=== PATIENT | female | born 1945 | race Caucasian/White ===

== ENCOUNTER 2016-04-28 06:25 | Day surgery (SDC) | payer MEDICARE ==
[~2016-04-28 06:25] MED LIST: KETOROLAC TROMETHAMINE 0.45% 4 DROP/0.4 ML DROPERETTE OD PRN
[2016-04-28] MEDS: CYCLOPENTOLATE 0.2%/PHENYLEPHRINE 1% OPH SOLN 2 ML OD PRN ×3 (06:46→07:06)
[2016-04-28] MEDS: TROPICAMIDE 1% OPH SOLN 3 ML OD PRN ×3 (06:46→07:06)
[2016-04-28] MEDS: BESIFLOXACIN HCL 0.6% OPH SUSP 5 ML BOTTLE OD PRN ×4 (06:46→08:05)
[2016-04-28] MEDS: TETRACAINE HCL 0.5% OPH SOLN 2 ML OD PRN ×3 (06:47→07:34)
[2016-04-28] MEDS ORDERED: MIDAZOLAM 2 MG/2 ML INJ ONE (07:03)
[2016-04-28] MEDS ORDERED: EPINEPHRINE INJ/PF 1 MG/1 ML AMPULE ONE (07:12)
[2016-04-28] MEDS ORDERED: LIDOCAINE 1% INJ-PF (10 MG/ML) 30 ML SDV ONE (07:13)
[2016-04-28] MEDS ORDERED: CHONDR SU A NA/HYALUR INTRAOC KIT (SURGICARE) ONE (07:13)
--- NOTE | 2016-04-28 17:28 | DISCHARGE SUMMARY E ---
Discharge Summary NAME: SHIRLEY HAUSER : 1945 AGE: 70Y ADMITTED: 04/28/2016 DISCHARGED: This is a 70-year-old female who underwent cataract extraction of the right eye. DIAGNOSIS: Cataract extraction with insertion of a toric IOL at 70 degrees. The patient underwent surgery because she was having trouble reading small print. DISCHARGE INSTRUCTIONS: She is to be on a regular diet. No bending at her waist, no heavy lifting. She is to use Besivance, Ilevro, and Durezol at 3:00 p.m. and 8:00 p.m., and sleep with a rigid shield. I will see her for her one day postoperative tomorrow. DICTATING PHYSICIAN: ROBERTO IBARRA M.D. [id number] PHY#: [id number] ID: [id number] JOB#: [id number] ACCT: [id number] cc:ROBERTO IBARRA M.D. >
--- NOTE | 2016-04-28 18:18 | [facility] OPERATIVE REPORT E ---
[facility] Operative Report NAME: SHIRLEY HAUSER AGE: 70Y DATE OF SURGERY: 04/28/2016 ROOM: PREOPERATIVE DIAGNOSIS: CATARACT, RIGHT EYE. POSTOPERATIVE DIAGNOSIS: CATARACT, RIGHT EYE. OPERATION: Cataract extraction with toric IOL. SURGEON: ROBERTO IBARRA M.D. ANESTHESIA: Topical. PROCEDURE: After obtaining appropriate consent, the patient's right eye was prepped and draped in sterile fashion as well as the surgeon in a sterile manner and cataract surgery was started. First a paracentesis blade was used to make a small side-port incision. Viscoelastic was used to inflate the anterior chamber. Next a 2.4 mm incision was made with the paracentesis blade. A continuous capsulorrhexis incision was made using a cystotome and Utrata forceps. Following this hydrodissection was carried out to make the lens fully loose and mobile and it was rotated 90 degrees. Following this, a fbimqw-bkr-bafigqe technique was used to phacoemulsify the lens with a CDE of 12.51. The remaining cortex was removed with irrigation/aspiration. Provisc was instilled into the capsular bag to inflate the bag. A 23.5 SN6AT3 lens, rotated to 70 degrees diopter lens was placed. The remaining viscoelastic material was removed with irrigation/aspiration. Following this, a 10-0 nylon suture was used to close the incision and it was found to be watertight. Vigamox was instilled in the eye and a protective shield was placed over the eye. The patient returned to the postoperative recovery in stable condition. DICTATING PHYSICIAN: ROBERTO IBARRA M.D. [id number] PHY#: [id number] ID: [id number] JOB#: [id number] ACCT: [id number] cc:ROBERTO IBARRA M.D. >
== END 2016-04-28 08:46 | disposition home or self-care (01) ==
LOC: SC 06:25
PROVIDERS: ATTEND Internal Medicine
PROC: 08RJ3JZ Replacement of Right Lens with Synthetic Substitute, Percutaneous Approach (ICD-10-PCS; principal; 2016-04-28 07:30)
DX: H25.13 Age-related nuclear cataract, bilateral (principal); E03.9 Hypothyroidism, unspecified; Z79.899 Other long term (current) drug therapy
CPT/HCPCS: 66984; V2787; J2250; J3490 ×2; A9270; J0171; 142

== ENCOUNTER 2016-05-19 10:32 | Day surgery (SDC) | payer MEDICARE ==
[~2016-05-19 10:32] MED LIST changes: -KETOROLAC TROMETHAMINE 0.45% 4 DROP/0.4 ML DROPERETTE OD PRN; +KETOROLAC TROMETHAMINE 0.45% 4 DROP/0.4 ML DROPERETTE OS PRN
[2016-05-19] MEDS: CYCLOPENTOLATE 0.2%/PHENYLEPHRINE 1% OPH SOLN 2 ML OS PRN ×3 (11:18→11:57)
[2016-05-19] MEDS: TROPICAMIDE 1% OPH SOLN 3 ML OS PRN ×3 (11:18→11:57)
[2016-05-19] MEDS: TETRACAINE HCL 0.5% OPH SOLN 2 ML OS PRN ×4 (11:18→12:00)
[2016-05-19] MEDS: BESIFLOXACIN HCL 0.6% OPH SUSP 5 ML BOTTLE OS PRN ×4 (11:18→12:36)
[2016-05-19] MEDS ORDERED: MIDAZOLAM 2 MG/2 ML INJ ONE (11:33)
[2016-05-19] MEDS: LIDOCAINE 1% INJ-PF (10 MG/ML) 30 ML SDV ONE ×2 (12:14)
[2016-05-19] MEDS: EPINEPHRINE INJ/PF 1 MG/1 ML AMPULE ONE ×2 (12:14)
[2016-05-19] MEDS: CHONDR SU A NA/HYALUR INTRAOC KIT (SURGICARE) ONE ×2 (12:14)
--- NOTE | 2016-05-19 20:18 | [facility] OPERATIVE REPORT E ---
[facility] Operative Report NAME: SHIRLEY HAUSER AGE: 70Y DATE OF SURGERY: 05/19/2016 ROOM: PREOPERATIVE DIAGNOSIS: CATARACT, LEFT EYE. POSTOPERATIVE DIAGNOSIS: CATARACT, LEFT EYE. OPERATION: Cataract extraction with Toric intraocular lens implant of the left eye. SURGEON: ROBERTO IBARRA M.D. ANESTHESIA: Topical. PROCEDURE: After obtaining appropriate consent, the patient's left eye was prepped and draped in sterile fashion as well as the surgeon in a sterile manner and cataract surgery was started. First a paracentesis blade was used to make a small side-port incision. Viscoelastic was used to inflate the anterior chamber. Next a 2.4 mm incision was made with the paracentesis blade. A continuous capsulorrhexis incision was made using a cystotome and Utrata forceps. Following this hydrodissection was carried out to make the lens fully loose and mobile and it was rotated 90 degrees. Following this, a qkwquf-jjx-mxbatnr technique was used to phacoemulsify the lens with a CDE of 15.90. The remaining cortex was removed with irrigation/aspiration. Provisc was instilled into the capsular bag to inflate the bag. A SN6AT3, 22.5 diopter lens rotated to 107 degrees was placed. The remaining viscoelastic material was removed with irrigation/aspiration. Following this, a 10-0 nylon suture was used to close the incision and it was found to be watertight. Vigamox was instilled in the eye and a protective shield was placed over the eye. The patient returned to the postoperative recovery in stable condition. DICTATING PHYSICIAN: ROBERTO IBARRA M.D. [id number] PHY#: [id number] ID: [id number] JOB#: [id number] ACCT: [id number] cc:ROBERTO IBARRA M.D. >
--- NOTE | 2016-05-19 20:23 | DISCHARGE SUMMARY E ---
Discharge Summary NAME: SHIRLEY HAUSER : 1945 AGE: 70Y ADMITTED: 05/19/2016 DISCHARGED: 05/19/2016 This is a 70-year-old female who underwent cataract extraction with Toric intraocular lens of the left eye. DIAGNOSIS: Cataract, left eye. She underwent surgery because she was having difficulty reading and driving at night. DISCHARGE INSTRUCTIONS: She is to be on a regular diet. No bending at her waist, no heavy lifting. She is to use Besivance, Ilevro, and Durezol at 3:00 p.m. and 8:00 p.m., and sleep with a rigid shield. I will see her for her one day postoperative tomorrow. DICTATING PHYSICIAN: ROBERTO IBARRA M.D. [id number] PHY#: [id number] ID: [id number] JOB#: [id number] ACCT: [id number] cc:ROBERTO IBARRA M.D. >
== END 2016-05-19 13:15 | disposition home or self-care (01) ==
LOC: SC 10:32
PROVIDERS: ATTEND Internal Medicine
PROC: 08RK3JZ Replacement of Left Lens with Synthetic Substitute, Percutaneous Approach (ICD-10-PCS; principal; 2016-05-19 12:00)
DX: H25.12 Age-related nuclear cataract, left eye (principal); Z96.1 Presence of intraocular lens; E03.9 Hypothyroidism, unspecified; Z79.899 Other long term (current) drug therapy
CPT/HCPCS: 66984; V2787; J2250; J3490 ×2; A9270; J0171; 142

== ENCOUNTER 2018-04-09 23:39 | Inpatient (IN) | payer MEDICARE ==
[2018-04-10] MEDS ORDERED: ONDANSETRON HCL INJ/PF 4 MG/2 ML SDV IV ONE (00:02)
--- NOTE | 2018-04-10 00:05 | ER Document Report ---
ED Medical Screen (RME) - General Chief Complaint: Vomiting Stated Complaint: VOMITING Time Seen by Provider: 04/10/18 00:01 Primary Care Provider: ELISSA PHELPS DOC [Primary Care Provider] - Follow up as needed Notes: Patient is a 72-year-old female presents to the emergency department for generalized periumbilical abdominal pain that started around 1730 hrs. this evening. Patient states around 2100 hrs. this evening she then vomited a total of 3 times is denying any blood. Patient's denying any diarrhea and states that she is afebrile. Patient states her last bowel movement was this afternoon although she does have a history of a bowel obstruction with surgical correction in 2009. Past medical history: SBO with surgical repair, hypothyroidism Medications: Estrogen, Synthroid Allergies: None GENERAL: Alert, interacts well. Pallor, generally looks unwell, in pain ABDOMEN: Soft, generalized periumbilical abdominal pain noted. Non-distended. Bowel sounds present in all 4 quadrants. I have greeted and performed a rapid initial assessment of this patient. A comprehensive ED assessment and evaluation of the patient, analysis of test results and completion of the medical decision making process will be conducted by additional ED providers. TRAVEL OUTSIDE OF THE [place] IN LAST 30 DAYS: No - Related Data Allergies/Adverse Reactions: No Known Allergies Allergy (Verified 05/19/16 11:21) Past Medical History - Past Medical History Cardiac Medical History: Denies: Hx Coronary Artery Disease, Hx Heart Attack, Hx Hypertension Pulmonary Medical History: Denies: Hx Asthma, Hx Bronchitis, Hx COPD, Hx Pneumonia Neurological Medical History: Denies: Hx Cerebrovascular Accident, Hx Seizures GI Medical History: Denies: Hx Hepatitis, Hx Hiatal Hernia, Hx Ulcer Musculoskeltal Medical History: Reports Hx Arthritis Infectious Medical History: Denies: Hx Hepatitis Past Surgical History: Denies: Hx Hysterectomy, Hx Mastectomy, Hx Open Heart Surgery, Hx Pacemaker - Immunizations Hx Diphtheria, Pertussis, Tetanus Vaccination: Yes Physical Exam - Vital signs Vitals: Temp Pulse Resp BP Pulse Ox 97.6 F 73 16 131/59 H 98 04/09/18 23:54 04/09/18 23:54 04/09/18 23:54 04/09/18 23:54 04/09/18 23:54 Course - Vital Signs Vital signs: Temp Pulse Resp BP Pulse Ox 97.6 F 73 16 131/59 H 98 04/09/18 23:54 04/09/18 23:54 04/09/18 23:54 04/09/18 23:54 04/09/18 23:54 Doctor's Discharge - Discharge Referrals: HEALTH,SCREENING DOC [Primary Care Provider] - Follow up as needed
[2018-04-10] MEDS ORDERED: FENTANYL CITRATE INJ/PF 100 MCG/2 ML AMPUL IV ONE ×2 (00:54→02:46)
--- NOTE | 2018-04-10 00:54 | ER Document Report ---
ED General - General Chief Complaint: Vomiting Stated Complaint: VOMITING Time Seen by Provider: 04/10/18 00:01 Notes: Patient is a 72-year-old female presents to the emergency department for generalized periumbilical abdominal pain that started around 1730 hrs. this evening. Patient states around 2100 hrs. this evening she then vomited a total of 3 times is denying any blood. Patient's denying any diarrhea and states that she is afebrile. Patient states her last bowel movement was this afternoon although she does have a history of a bowel obstruction with surgical correction in 2009. Past medical history: SBO with surgical repair, hypothyroidism Medications: Estrogen, Synthroid Allergies: None TRAVEL OUTSIDE OF THE [place] IN LAST 30 DAYS: No - Related Data Allergies/Adverse Reactions: No Known Allergies Allergy (Verified 05/19/16 11:21) Past Medical History - General Information source: Patient - Social History Smoking Status: Unknown if Ever Smoked Family History: Reviewed & Not Pertinent - Past Medical History Cardiac Medical History: Denies: Hx Coronary Artery Disease, Hx Heart Attack, Hx Hypertension Pulmonary Medical History: Denies: Hx Asthma, Hx Bronchitis, Hx COPD, Hx Pneumonia Neurological Medical History: Denies: Hx Cerebrovascular Accident, Hx Seizures GI Medical History: Denies: Hx Hepatitis, Hx Hiatal Hernia, Hx Ulcer Musculoskeletal Medical History: Reports Hx Arthritis Infectious Medical History: Denies: Hx Hepatitis Past Surgical History: Denies: Hx Hysterectomy, Hx Mastectomy, Hx Open Heart Surgery, Hx Pacemaker - Immunizations Hx Diphtheria, Pertussis, Tetanus Vaccination: Yes Review of Systems - Review of Systems Constitutional: See HPI EENT: No symptoms reported Cardiovascular: No symptoms reported Respiratory: No symptoms reported Gastrointestinal: See HPI Genitourinary: No symptoms reported Female Genitourinary: No symptoms reported Musculoskeletal: No symptoms reported Skin: No symptoms reported Hematologic/Lymphatic: No symptoms reported Neurological/Psychological: No symptoms reported Physical Exam - Vital signs Vitals: Temp Pulse Resp BP Pulse Ox 97.6 F 73 16 131/59 H 98 04/09/18 23:54 04/09/18 23:54 04/09/18 23:54 04/09/18 23:54 04/09/18 23:54 - Notes Notes: GENERAL: Alert, interacts well. Pallor noted, generally appears to be in pain. HEAD: Normocephalic, atraumatic. EYES: Pupils equal, round, and reactive to light. Extraocular movements intact. ENT: Oral mucosa moist, tongue midline. NECK: Full range of motion. Supple. Trachea midline. LUNGS: Clear to auscultation bilaterally, no wheezes, rales, or rhonchi. No respiratory distress. HEART: Regular rate and rhythm. No murmur ABDOMEN: Soft, generalized periumbilical abdominal pain. Non-distended. Bowel sounds present in all 4 quadrants. No McBurney's point tenderness, no Tolliver sign noted. EXTREMITIES: Moves all 4 extremities spontaneously. No edema, normal radial and dorsalis pedis pulses bilaterally. No cyanosis. BACK: no cervical, thoracic, lumbar midline tenderness. No saddle anesthesia, normal distal neurovascular exam. No CVA tenderness noted bilaterally NEUROLOGICAL: Alert and oriented x3. Normal speech. cranial nerves II through XII grossly intact PSYCH: Normal affect, normal mood. SKIN: Warm, dry, normal turgor. No rashes or lesions noted. Course - Re-evaluation Re-evalutation: Patient's labs show no signs of leukocytosis, no signs of anemia. Her sodium was 134.9. Treated with normal saline then solution in the emergency department. Patient's lactic acid was 1.2. Her specific gravity of her urine was 1.026 again treated with normal saline solution in the emergency department. 04/10/18 03:[address] does reveal a distal small bowel obstruction. Discussed this case with surgeon Dr. Ellington who states he will come to the emergency room to evaluate the patient. Patient is currently in no distress, had to be awoken to discuss CT results with her. 04/10/18 04:45 Patient is admitted to Surgeon Dr. Ellington. - Vital Signs Vital signs: Temp Pulse Resp BP Pulse Ox 97.6 F 73 19 165/68 H 96 04/09/18 23:54 04/09/18 23:54 04/10/18 02:01 04/10/18 02:01 04/10/18 02:01 - Laboratory Result Diagrams: 04/10/18 00:52 04/10/18 01:39 Laboratory results interpreted by me: 04/10/18 04/10/18 04/10/18 00:52 01:39 02:44 MCV 98 H MCH 33.7 H Seg Neutrophils % 82.4 H Lymphocytes % 10.7 L Sodium 134.9 L Glucose 116 H Urine Protein 30 H Urine Ketones 80 H Urine Urobilinogen 2.0 H Discharge - Discharge Clinical Impression: Small bowel obstruction Condition: Stable Disposition: ADMITTED INPATIENT Admitting Provider: Surgicalist - Dr. Ellington Unit Admitted: Medical Floor
[2018-04-10 01:02] LABS: ABSOLUTE BASOPHILS # (AUTO) 0.1 10^3/uL (0.0-0.2); ABSOLUTE MONOCYTES (AUTO) 0.5 10^3/uL (0.1-1.4); BASOPHILS % (AUTO) 0.8 % (0-2); EOSINOPHILS % (AUTO) 0.5 % (0-6); HEMATOCRIT 42.8 % (36.0-47.0); HEMOGLOBIN 14.8 g/dL (12.0-15.5); LYMPHOCYTES % (AUTO) 10.7 % (13-45); MEAN CORPUSCULAR HEMOGLOBIN 33.7 pg (27.0-33.4); MEAN CORPUSCULAR HGB CONC 34.5 g/dL (32.0-36.0); MEAN CORPUSCULAR VOLUME 98 fl (80-97); MONOCYTES % (AUTO) 5.6 % (3-13); PLATELET COUNT 240 10^3/uL (150-450); RED BLOOD COUNT 4.37 10^6/uL (3.72-5.28); RED CELL DISTRIBUTION WIDTH 13.7 % (11.5-14.0); SEGMENTED NEUTROPHILS % (AUTO) 82.4 % (42-78); TOTAL CELLS COUNTED % (AUTO) 100 %; WHITE BLOOD COUNT 9.7 10^3/uL (4.0-10.5)
[2018-04-10 02:05] LABS: ALANINE AMINOTRANSFERASE 30 U/L (9-52); ALBUMIN 4.8 g/dL (3.5-5.0); ALKALINE PHOSPHATASE 74 U/L (38-126); ANION GAP 12 (5-19); ASPARTATE AMINO TRANSFERASE 32 U/L (14-36); BILIRUBIN,DIRECT 0.2 mg/dL (0.0-0.4); BLOOD UREA NITROGEN 18 mg/dL (7-20); CALCIUM 9.8 mg/dL (8.4-10.2); CARBON DIOXIDE 24 mmol/L (22-30); CHLORIDE 99 mmol/L (98-107); GLUCOSE 116 mg/dL (75-110); LIPASE 78.8 U/L (23-300); POTASSIUM 4.3 mmol/L (3.6-5.0); SODIUM 134.9 mmol/L (137-145); TOTAL PROTEIN 7.7 g/dL (6.3-8.2)
--- NOTE | 2018-04-10 02:08 | RADIOLOGY REPORT (SQ) ---
EXAM DESCRIPTION: XR ABDOMEN SUPINE AND ERECT WITH CHEST (ABD ACUTE SERIES) COMPLETED DATE/TME: 04/10/2018 00:02 CLINICAL HISTORY: 72 years, Female, pain COMPARISON: None. NUMBER OF VIEWS: 3 TECHNIQUE: Upright chest with supine and erect views of the abdomen LIMITATIONS: None. FINDINGS: The heart size is normal. Lungs are clear. No pneumothorax. No free air under the hemidiaphragms. Nonspecific bowel gas pattern. Mildly dilated air-filled loop of small bowel in the right lower quadrant is noted. Other nondilated air-filled loops of bowel with air-fluid levels are present. Findings likely reflect ileus. Incomplete obstruction is not excluded entirely. No free air. IMPRESSION: Negative chest. Air-filled loops of small bowel with a few air-fluid levels likely reflect ileus. Incomplete obstruction felt less likely copyright 2011 [employer] [facility] [employer]- All Rights Reserved
[2018-04-10] MEDS ORDERED: PROMETHAZINE HCL INJ 25 MG/1 ML VIAL IV ONE (02:23)
[2018-04-10] MEDS ORDERED: NORMAL SALINE 1000 ML 1,000 ML IV ONE ×2 (02:44→04:10)
[2018-04-10 03:02] LABS: APPEARANCE,URINE CLOUDY; BILIRUBIN,URINE NEGATIVE (NEGATIVE); COLOR,URINE AMBER; GLUCOSE, URINE NEGATIVE (NEGATIVE); KETONES,URINE 80 mg/dL (NEGATIVE); LEUKOCYTE ESTERASE,URINE NEGATIVE (NEGATIVE); NITRITE,URINE NEGATIVE (NEGATIVE); PROTEIN,URINE 30 mg/dL (NEGATIVE); URINE SPECIFIC GRAVITY 1.026
--- NOTE | 2018-04-10 03:32 | RADIOLOGY REPORT (SQ) ---
EXAM DESCRIPTION: CT ABDOMEN PELVIS WITH IV CONTRAST COMPLETED DATE/TME: 04/10/2018 00:00 CLINICAL HISTORY: 72 years, Female, DIFFUSE ABD PAIN. CONCERN FOR SBO. COMPARISON: None. TECHNIQUE: Contiguous axial CT images of the abdomen and pelvis were obtained. Sagittal and coronal reformats were reviewed. This exam was performed according to our departmental dose-optimization program, which includes automated exposure control, adjustment of the mA and/or kV according to patient size and/or use of iterative reconstruction technique. FINDINGS: Lung bases: Mild dependent hypoventilatory changes. Liver:Unremarkable. No focal liver lesion. Gallbladder:Unremarkable. No gallstones. No gallbladder wall thickening or pericholecystic fluid. Spleen:Unremarkable Pancreas: Pancreas is unremarkable. Adrenal glands:Within normal limits. Kidneys/ureters:Within normal limits Stomach/small bowel/colon: Stomach is unremarkable. Multiple dilated fluid-filled loops of small bowel throughout the abdomen measuring up to 3.5 cm in diameter. No pneumatosis. Transition point in the right lower quadrant. Colon is unremarkable. Appendix: Not visualized. Peritoneum: No free fluid. Vascular structures: within normal limits Lymph nodes: No abnormal lymph nodes. Bladder:Unremarkable. Pelvic organs: No acute abnormality Bones: No acute osseous abnormality. Soft tissues: Unremarkable.. IMPRESSION: Distal small bowel obstruction.
[2018-04-10] MEDS ORDERED: PHARMACY COMMUNICATION ORDER MC NR (04:45)
[2018-04-10] MEDS: MORPHINE SULFATE 10 MG/ML INJ IV PRN (05:05)
[2018-04-10] MEDS: DEXTROSE 5%-LACTATED RINGERS 1,000 ML IV PRN (05:15)
--- NOTE | 2018-04-10 06:35 | PDOC H&P ---
History of Present Illness Admission Date/PCP: 04/10/18 04:47 YOBANI NÚÑEZ PA-C Patient complains of: Abdominal pain, nausea, vomiting. History of Present Illness: SHIRLEY HAUSER is a 72 year old female with a 12-hour history of abdominal pain, nausea, and vomiting. The patient has experienced a small bowel obstruction in the past, requiring surgery. Patient reports that her symptoms "feel exactly the same". After eating dinner the patient began having lower abdominal pain, followed by distention, followed by vomiting. The patient presented to the em ergency department after vomiting approximately 5 times. The patient's last flatus and bowel movement were last night at approximately 2130. The patient denies any chest pain, shortness of breath, fevers, chills, orthostasis, dizziness, fatigue, malaise, headache, sore throat. The patient does report abdominal cramping, nausea, and vomiting. Nothing makes her pain better or worse. Past Medical History Cardiac Medical History: Denies: Coronary Artery Disease, Myocardial Infarction, Hypertension Pulmonary Medical History: Denies: Asthma, Bronchitis, Chronic Obstructive Pulmonary Disease (COPD), Pneumonia Neurological Medical History: Denies: Seizures GI Medical History: Denies: Hepatitis, Hiatal Hernia Musculoskeltal Medical History: Reports: Arthritis Hematology: Denies: Anemia, Sickle Cell Disease Past Surgical History Past Surgical History: Denies: Amputation, Hysterectomy, Mastectomy, Pacemaker Social History Smoking Status: Never Smoker Hx Recreational Drug Use: No Family History Family History: Reviewed & Not Pertinent Parental Family History Reviewed: Yes Children Family History Reviewed: Yes Sibling(s) Family History Reviewed.: Yes Medication/Allergy Home Medications: Cream Base No.91 [Hrt Base Botanical] 1 tab PO Q3DAYS 05/13/13 Besifloxacin HCl [Besivance Drops] 1 drop OP TID 04/21/16 Difluprednate [Durezol] 1 drop OP ASDIR PRN 04/21/16 Ergocalciferol (Vitamin D2) [Vitamin D] 400 unit PO DAILY 04/21/16 Levothyroxine Sodium [Synthroid 0.025 mg Tablet] 25 mcg PO DAILY 04/21/16 Nepafenac [Ilevro] 1 drop OP ASDIR PRN 04/21/16 Estradiol Valerate [Delestrogen] 1 mg IM .QMONTHLY 05/13/16 Allergies/Adverse Reactions: No Known Allergies Allergy (Verified 05/19/16 11:21) Review of Systems Constitutional: ABSENT: chills, fatigue, fever(s) Eyes: ABSENT: visual disturbances Ears: ABSENT: hearing changes Nose, Mouth, and Throat: ABSENT: sore throat Cardiovascular: ABSENT: chest pain, palpitations Respiratory: ABSENT: cough, dyspnea Gastrointestinal: PRESENT: abdominal pain, bloating, nausea, vomiting Genitourinary: ABSENT: dysuria Musculoskeletal: ABSENT: back pain Integumentary: ABSENT: pruritus, rash Neurological: ABSENT: confusion, convulsions, dizziness Psychiatric: ABSENT: anxiety, depression Endocrine: ABSENT: cold intolerance, heat intolerance Hematologic/Lymphatic: ABSENT: easy bleeding, easy bruising Physical Exam Vital Signs: Temp Pulse Resp BP Pulse Ox 97.6 F 73 19 165/68 H 96 04/09/18 23:54 04/09/18 23:54 04/10/18 02:01 04/10/18 02:01 04/10/18 02:01 Intake & Output 04/08/18 04/09/18 04/10/18 06:59 06:59 06:59 Intake Total 1999 Balance 1999 Weight 54 kg General appearance: PRESENT: no acute distress, cooperative Head exam: PRESENT: atraumatic, normocephalic Eye exam: PRESENT: EOMI, PERRLA. ABSENT: scleral icterus Mouth exam: PRESENT: moist, neck supple Teeth exam: ABSENT: poor dentation Neck exam: ABSENT: meningismus, tenderness, thyromegaly, tracheal deviation Respiratory exam: PRESENT: clear to auscultation jono, unlabored. ABSENT: chest wall tenderness, tachypnea, wheezes Cardiovascular exam: PRESENT: RRR Pulses: PRESENT: normal radial pulses Vascular exam: PRESENT: normal capillary refill. ABSENT: pallor GI/Abdominal exam: PRESENT: distended, soft, tenderness - Mild lower abdominal tenderness, other - No peritonitis. ABSENT: guarding, rebound Rectal exam: PRESENT: deferred Extremities exam: ABSENT: clubbing Musculoskeletal exam: ABSENT: deformity Neurological exam: PRESENT: alert, awake, oriented to person, oriented to place, oriented to time, oriented to situation, CN II-XII grossly intact Psychiatric exam: ABSENT: agitated, anxious, depressed Focused psych exam: ABSENT: delusional Skin exam: ABSENT: cyanosis, erythema, jaundice Results Laboratory Results: 04/10/18 00:52 04/10/18 01:39 04/10/18 04/10/18 04/10/18 00:52 00:52 01:39 WBC 9.7 RBC 4.37 Hgb 14.8 Hct 42.8 MCV 98 H MCH 33.7 H MCHC 34.5 RDW 13.7 Plt Count 240 Seg Neutrophils % 82.4 H Lymphocytes % 10.7 L Monocytes % 5.6 Eosinophils % 0.5 Basophils % 0.8 Absolute Neutrophils 8.0 Absolute Lymphocytes 1.0 Absolute Monocytes 0.5 Absolute Eosinophils 0.0 Absolute Basophils 0.1 Sodium Cancelled 134.9 L Potassium Cancelled 4.3 Chloride Cancelled 99 Carbon Dioxide Cancelled 24 Anion Gap Cancelled 12 BUN Cancelled 18 Creatinine Cancelled 0.87 Est GFR ( Amer) Cancelled > 60 Est GFR (Non-Af Amer) Cancelled > 60 Glucose Cancelled 116 H Lactic Acid Calcium Cancelled 9.8 Total Bilirubin Cancelled 1.0 AST Cancelled 32 ALT Cancelled 30 Alkaline Phosphatase Cancelled 74 Total Protein Cancelled 7.7 Albumin Cancelled 4.8 Lipase Cancelled 78.8 Urine Color Urine Appearance Urine pH Ur Specific Zalma Urine Protein Urine Glucose (UA) Urine Ketones Urine Blood Urine Nitrite Ur Leukocyte Esterase Urine WBC (Auto) Urine RBC (Auto) 04/10/18 04/10/18 02:44 03:58 WBC RBC Hgb Hct MCV MCH MCHC RDW Plt Count Seg Neutrophils % Lymphocytes % Monocytes % Eosinophils % Basophils % Absolute Neutrophils Absolute Lymphocytes Absolute Monocytes Absolute Eosinophils Absolute Basophils Sodium Potassium Chloride Carbon Dioxide Anion Gap BUN Creatinine Est GFR ( Amer) Est GFR (Non-Af Amer) Glucose Lactic Acid 1.2 Calcium Total Bilirubin AST ALT Alkaline Phosphatase Total Protein Albumin Lipase Urine Color JEF Urine Appearance CLOUDY Urine pH 5.0 Ur Specific Zalma 1.026 Urine Protein 30 H Urine Glucose (UA) NEGATIVE Urine Ketones 80 H Urine Blood NEGATIVE Urine Nitrite NEGATIVE Ur Leukocyte Esterase NEGATIVE Urine WBC (Auto) 4 Urine RBC (Auto) 1 Impressions: Abdomen/Pelvis CT 04/10/18 00:00 IMPRESSION: Distal small bowel obstruction. Acute Abdomen Series 04/10/18 00:02 IMPRESSION: Negative chest. Air-filled loops of small bowel with a few air-fluid levels likely reflect ileus. Incomplete obstruction felt less likely copyright 2011 [employer]- All Rights Reserved Assessment & Plan - Diagnosis (1) Small bowel obstruction Is this a current diagnosis for this admission?: Yes - Plan Summary Plan Summary: This is a 72-year-old female with a small bowel obstruction, seen on CT scan. She has a history of previous intra-abdominal surgery. I will admit the patient to the hospital, inserted an NG tube, and initiate appropriate conservative therapy. I have discussed the options with the patient and her . Hopefully, NG decompression will resolve her bowel obstruction. If this is u nsuccessful, she may require surgical intervention. The patient does not show signs of peritonitis at present. Continue with IV fluids and IV pain control.
--- NOTE | 2018-04-10 07:15 | RADIOLOGY REPORT (SQ) ---
EXAM DESCRIPTION: X-ray abdomen 1 view CLINICAL DATA: Check placement of nasogastric tube. TECHNICAL DATA: A single AP supine x-ray of the abdomen was performed on 04/10/2018 at 5:34 AM. Comparison: None. FINDINGS: The nasogastric tube extends below the diaphragm. The tip projects over the region of the body of the stomach. The proximal sidehole projects over the region of the gastroesophageal junction. The bowel gas pattern is nonspecific. The visualized lung bases are grossly clear. There is contrast in the renal collecting systems related to the prior CT scan. There are mild degenerative changes of the lumbar spine. IMPRESSION: The tip of the nasogastric tube projects over the left upper quadrant in the region of the body of the stomach and the proximal sidehole projects over the region of the GE junction.
--- NOTE | 2018-04-10 15:09 | PDOC PROGRESS REPORT ---
Subjective Progress Note for:: 04/10/18 Subjective:: abdominal pains. Reason For Visit: SBO Physical Exam Vital Signs: Temp Pulse Resp BP Pulse Ox 98.6 F 63 16 156/71 H 99 04/10/18 11:18 04/10/18 11:18 04/10/18 11:18 04/10/18 11:18 04/10/18 11:18 Intake & Output 04/09/18 04/10/18 04/11/18 06:59 06:59 06:59 Intake Total 1999 0 Balance 1999 0 Weight 54 kg Exam: NGT in place draining greenish bilious drainage. Feels better than on admission earlier today though had morphine Abdomen is soft with minimal tenderness. Results Laboratory Results: 04/10/18 00:52 04/10/18 01:39 04/10/18 04/10/18 04/10/18 00:52 00:52 01:39 WBC 9.7 RBC 4.37 Hgb 14.8 Hct 42.8 MCV 98 H MCH 33.7 H MCHC 34.5 RDW 13.7 Plt Count 240 Seg Neutrophils % 82.4 H Lymphocytes % 10.7 L Monocytes % 5.6 Eosinophils % 0.5 Basophils % 0.8 Absolute Neutrophils 8.0 Absolute Lymphocytes 1.0 Absolute Monocytes 0.5 Absolute Eosinophils 0.0 Absolute Basophils 0.1 Sodium Cancelled 134.9 L Potassium Cancelled 4.3 Chloride Cancelled 99 Carbon Dioxide Cancelled 24 Anion Gap Cancelled 12 BUN Cancelled 18 Creatinine Cancelled 0.87 Est GFR ( Amer) Cancelled > 60 Est GFR (Non-Af Amer) Cancelled > 60 Glucose Cancelled 116 H Lactic Acid Calcium Cancelled 9.8 Total Bilirubin Cancelled 1.0 AST Cancelled 32 ALT Cancelled 30 Alkaline Phosphatase Cancelled 74 Total Protein Cancelled 7.7 Albumin Cancelled 4.8 Lipase Cancelled 78.8 Urine Color Urine Appearance Urine pH Ur Specific [place] Urine Protein Urine Glucose (UA) Urine Ketones Urine Blood Urine Nitrite Ur Leukocyte Esterase Urine WBC (Auto) Urine RBC (Auto) 04/10/18 04/10/18 02:44 03:58 WBC RBC Hgb Hct MCV MCH MCHC RDW Plt Count Seg Neutrophils % Lymphocytes % Monocytes % Eosinophils % Basophils % Absolute Neutrophils Absolute Lymphocytes Absolute Monocytes Absolute Eosinophils Absolute Basophils Sodium Potassium Chloride Carbon Dioxide Anion Gap BUN Creatinine Est GFR ( Amer) Est GFR (Non-Af Amer) Glucose Lactic Acid 1.2 Calcium Total Bilirubin AST ALT Alkaline Phosphatase Total Protein Albumin Lipase Urine Color JEF Urine Appearance CLOUDY Urine pH 5.0 Ur Specific [place] 1.026 Urine Protein 30 H Urine Glucose (UA) NEGATIVE Urine Ketones 80 H Urine Blood NEGATIVE Urine Nitrite NEGATIVE Ur Leukocyte Esterase NEGATIVE Urine WBC (Auto) 4 Urine RBC (Auto) 1 Impressions: Abdomen/Pelvis CT 04/10/18 00:00 IMPRESSION: Distal small bowel obstruction. Acute Abdomen Series 04/10/18 00:02 IMPRESSION: Negative chest. Air-filled loops of small bowel with a few air-fluid levels likely reflect ileus. Incomplete obstruction felt less likely copyright 2011 [employer]- All Rights Reserved KUB X-Ray 04/10/18 04:36 IMPRESSION: The tip of the nasogastric tube projects over the left upper quadrant in the region of the body of the stomach and the proximal sidehole projects over the region of the GE junction. Assessment & Plan - Diagnosis (1) Small bowel obstruction Is this a current diagnosis for this admission?: Yes - Time Time Spent with patient: 15-24 minutes - Inpatient Certification Medical Necessity: Need For IV Fluids, Need for Pain Control, Risk of Complication if Not Cared For in Hospital - Plan Summary Plan Summary: Continue with NGT. and hydration If still not much improvement in am, will order gastrograffin small bowel series.
[2018-04-10] MEDS: ONDANSETRON HCL INJ/PF 4 MG/2 ML SDV IV PRN ×2 (17:27→23:22)
[2018-04-11] MEDS: ONDANSETRON HCL INJ/PF 4 MG/2 ML SDV IV PRN ×3 (03:26→13:41)
[2018-04-11] MEDS: DEXTROSE 5%-LACTATED RINGERS 1,000 ML IV PRN ×2 (03:49→16:20)
[2018-04-11 07:01] LABS: ABSOLUTE LYMPHOCYTES (AUTO) 1.3 10^3/uL (0.5-4.7); ABSOLUTE MONOCYTES (AUTO) 0.7 10^3/uL (0.1-1.4); ABSOLUTE NEUT (AUTO) 6.4 10^3/uL (1.7-8.2); BASOPHILS % (AUTO) 0.6 % (0-2); EOSINOPHILS % (AUTO) 0.2 % (0-6); LYMPHOCYTES % (AUTO) 14.9 % (13-45); MEAN CORPUSCULAR HGB CONC 34.9 g/dL (32.0-36.0); MEAN CORPUSCULAR VOLUME 97 fl (80-97); MONOCYTES % (AUTO) 8.8 % (3-13); PLATELET COUNT 213 10^3/uL (150-450); RED BLOOD COUNT 4.43 10^6/uL (3.72-5.28); RED CELL DISTRIBUTION WIDTH 13.3 % (11.5-14.0); SEGMENTED NEUTROPHILS % (AUTO) 75.5 % (42-78); TOTAL CELLS COUNTED % (AUTO) 100 %; WHITE BLOOD COUNT 8.5 10^3/uL (4.0-10.5)
[2018-04-11 07:28] LABS: ALANINE AMINOTRANSFERASE 21 U/L (9-52); ALBUMIN 3.7 g/dL (3.5-5.0); ALKALINE PHOSPHATASE 62 U/L (38-126); ANION GAP 7 (5-19); ASPARTATE AMINO TRANSFERASE 24 U/L (14-36); BILIRUBIN,DIRECT 0.2 mg/dL (0.0-0.4); BILIRUBIN,TOTAL 1.1 mg/dL (0.2-1.3); BLOOD UREA NITROGEN 15 mg/dL (7-20); CALCIUM 8.5 mg/dL (8.4-10.2); CARBON DIOXIDE 26 mmol/L (22-30); CHLORIDE 105 mmol/L (98-107); GLUCOSE 132 mg/dL (75-110); POTASSIUM 4.5 mmol/L (3.6-5.0); SODIUM 137.8 mmol/L (137-145); TOTAL PROTEIN 6.3 g/dL (6.3-8.2)
--- NOTE | 2018-04-11 08:58 | PDOC PROGRESS REPORT ---
Subjective Progress Note for:: 04/11/18 Subjective:: no pains. Had nausea with vomiting last night Decreased drainage from NGT Reason For Visit: SBO Physical Exam Vital Signs: Temp Pulse Resp BP Pulse Ox 98.2 F 73 14 164/67 H 96 04/11/18 07:43 04/11/18 07:43 04/11/18 07:43 04/11/18 07:43 04/11/18 07:43 Intake & Output 04/10/18 04/11/18 04/12/18 06:59 06:59 06:59 Intake Total 1999 1000 Balance 1999 1000 Weight 54 kg 55.2 kg Exam: abdomen is soft and non tender Results Laboratory Results: 04/11/18 06:28 04/11/18 06:28 04/11/18 04/11/18 06:28 06:28 WBC 8.5 RBC 4.43 Hgb 15.0 Hct 43.0 MCV 97 MCH 34.0 H MCHC 34.9 RDW 13.3 Plt Count 213 Seg Neutrophils % 75.5 Lymphocytes % 14.9 Monocytes % 8.8 Eosinophils % 0.2 Basophils % 0.6 Absolute Neutrophils 6.4 Absolute Lymphocytes 1.3 Absolute Monocytes 0.7 Absolute Eosinophils 0.0 Absolute Basophils 0.0 Sodium 137.8 Potassium 4.5 Chloride 105 Carbon Dioxide 26 Anion Gap 7 BUN 15 Creatinine 0.74 Est GFR ( Amer) > 60 Est GFR (Non-Af Amer) > 60 Glucose 132 H Calcium 8.5 Total Bilirubin 1.1 AST 24 ALT 21 Alkaline Phosphatase 62 Total Protein 6.3 Albumin 3.7 Impressions: Abdomen/Pelvis CT 04/10/18 00:00 IMPRESSION: Distal small bowel obstruction. Acute Abdomen Series 04/10/18 00:02 IMPRESSION: Negative chest. Air-filled loops of small bowel with a few air-fluid levels likely reflect ileus. Incomplete obstruction felt less likely copyright 2011 [employer]- All Rights Reserved KUB X-Ray 04/10/18 04:36 IMPRESSION: The tip of the nasogastric tube projects over the left upper quadrant in the region of the body of the stomach and the proximal sidehole projects over the region of the GE junction. Assessment & Plan - Diagnosis (1) Small bowel obstruction Is this a current diagnosis for this admission?: Yes - Time Time Spent with patient: 15-24 minutes - Inpatient Certification Medical Necessity: Need Close Monitoring Due to Risk of Patient Decompensation, Need For IV Fluids, Risk of Complication if Not Cared For in Hospital - Plan Summary Plan Summary: Gastrograffin SBFT this am to check location of abscess or help open up
[2018-04-11] MEDS ORDERED: NEOSTIGMINE METHYLSULFATE 10 MG/10 ML VIAL ONE (13:48)
[2018-04-11] MEDS ORDERED: GLYCOPYRROLATE 1 MG/5 ML SYRINGE ONE (13:48)
[2018-04-11] MEDS ORDERED: SUCCINYLCHOLINE CHLORIDE INJ 200 MG/10 ML VIAL ONE (13:48)
[2018-04-11] MEDS ORDERED: ROCURONIUM BROMIDE INJ 50 MG/5 ML VIAL IV ONE (13:48)
--- NOTE | 2018-04-11 14:52 | RADIOLOGY REPORT (SQ) ---
EXAM DESCRIPTION: SMALL BOWEL SERIES COMPLETED DATE/TIME: 04/11/2018 2:10 pm REASON FOR STUDY: SBO COMPARISON: CT abdomen pelvis 02/14/2010, 04/10/2018 Abdominal films 02/17/2010, 04/10/2018 FLUOROSCOPY TIME: No fluoro 6 KUB images saved to PACS. LIMITATIONS: None. PROCEDURE: Initial bakery manager image of abdomen acquired, followed by administration of oral contrast. Se rial radiographic images acquired. Fluoroscopic images recorded of the terminal ileum and other sulma cated areas. All images stored on PACS. FINDINGS: MECHANICAL ESTIMATOR KUB: Nasogastric tube decompresses the stomach. In the mid abdomen, dilated small b owel loops are present with air-fluid levels. Small amount of gas and stool in the ascending and ciara cending colon. Degenerative changes lumbar spine STOMACH: Gastrografin was instilled through the patient's pre-existing nasogastric tube into the stom ach. Prompt gastric emptying into normal appearing duodenum and left upper quadrant proximal small b owel loops DUODENUM: Normal mucosal pattern with adequate distention. No displacement or obstruction. JEJUNUM: Normal mucosal pattern. No dilatation, segmentation, strictures or masses. Jejunal loops a re normal in caliber with normal mucosal fold pattern ILEUM: There is diffuse dilatation of the ileum with pooling of Gastrografin contrast in dilated loop s in the mid epigastrium. These findings were present from the 15 minutes film through the 3 hour im ages. No distal migration of contrast into the distal ileum or ascending colon. Findings are worris ome for high-grade distal small-bowel obstruction. Findings were discussed with Dr. Joshua TERMINAL ILEUM AND ILEO-CECAL VALVE: No Gastrografin contrast in the distal ileum/ileocecal region. PROXIMAL COLON: No Gastrografin contrast in the ascending colon. OTHER: No other significant finding. IMPRESSION: Distal small bowel obstruction. Findings called to Dr. Joshua COMMENT: Quality ID [id number]: Final reports for procedures using fluoroscopy that document radiation exp osure indices, or exposure time and number of fluorographic images (if radiation exposure indices are not available) TECHNICAL DOCUMENTATION: JOB ID: [id number] [employer]- All Rights Reserved Reading location - IP/workstation name: [facility]
[2018-04-11] MEDS: MORPHINE SULFATE 10 MG/ML INJ IV PRN (16:20)
[2018-04-11] MEDS ORDERED: FENTANYL CITRATE INJ/PF 250 MCG/5 ML AMPULE ONE (17:19)
[2018-04-11] MEDS ORDERED: EPHEDRINE SULFATE INJ 50 MG/1 ML AMPULE ONE (17:19)
[2018-04-11] MEDS ORDERED: MIDAZOLAM 2 MG/2 ML INJ ONE (17:19)
[2018-04-11] MEDS ORDERED: HYDROMORPHONE HCL INJ/PF 2 MG/ML AMPULE ONE (17:19)
[2018-04-11] MEDS ORDERED: PROPOFOL INJ 200 MG/20 ML VIAL IV ONE (17:20)
[2018-04-11] MEDS ORDERED: CEFAZOLIN INJ 1 GM VIAL ONE (18:00)
[2018-04-11] MEDS ORDERED: PROMETHAZINE HCL INJ 25 MG/1 ML VIAL IV PRN (20:44)
[2018-04-11] MEDS ORDERED: DIPHENHYDRAMINE HCL 50 MG/ML VIAL IV PRN (20:44)
[2018-04-11] MEDS ORDERED: FENTANYL CITRATE INJ/PF 100 MCG/2 ML AMPUL IV PRN ×3 (20:44)
[2018-04-11] MEDS ORDERED: MEPERIDINE HCL/PF INJ 25 MG/1 ML DISP.SYRIN IV PRN (20:44)
[2018-04-11] MEDS: KETOROLAC TROMETHAMINE INJ/PF 30 MG/1 ML SDV ONE ×2 (21:33→21:35)
[2018-04-11] MEDS: KETOROLAC TROMETHAMINE INJ/PF 30 MG/1 ML SDV IV SCH (22:00)
[2018-04-11] MEDS: NORMAL SALINE 1000 ML 1,000 ML IV PRN (23:09)
--- NOTE | 2018-04-12 04:27 | OPERATIVE REPORT E ---
Operative Report NAME: SHIRLEY HAUSER : 1945 AGE: 72Y DATE OF SURGERY: 04/11/2018 ROOM: 331 PREOPERATIVE DIAGNOSIS: SMALL-BOWEL OBSTRUCTION DUE TO ADHESIONS. POSTOPERATIVE DIAGNOSIS: SMALL-BOWEL OBSTRUCTION DUE TO ADHESIONS. OPERATION: Exploratory laparotomy and lysis of extensive adhesions. SURGEON: GENEVIEVE YEUNG M.D. ANESTHESIA: General. INDICATION: This is a 72-year-old female who had a previous exploratory laparotomy for adhesions in 2009. A day prior to admission the patient complained of abdominal pains and nausea and vomiting. She was admitted on 04/10/18. She had a CAT scan of the abdomen on admission which showed possible small-bowel obstruction. Today on the day of surgery, she then had a small-bowel follow through with Gastrografin, which shows likelihood of persistent small-bowel obstruction. Because of this, the patient was then taken to the OR for exploratory laparotomy and release of obstruction. DESCRIPTION OF PROCEDURE: After adequate general anesthesia, the patient was placed in supine position and the abdomen prepped and draped in the usual sterile fashion. Appropriate time-out was then called. A midline incision was then made just above the previous scar below the umbilicus. The fascia was then opened. There was 1 small hernia that was noted on the upper part of the incision. On opening the fascia, there were some adhesions noted close to the fascia that were lysed. There was some clear fluid in the pelvic area. On exploration, the proximal small bowel appears to be dilated and the distal appears to be decompressed. While lifting the small bowel up through the incision, there was a thick band obstructing the small bowel. This was then lysed. There were also a lot of adhesions along the small bowel and to the ascending and transverse colon. These were lysed and it took me at least an hour trying to lyse all the adhesions. The small bowel just proximal to the obstruction appeared to be dusky and after a few minutes of laying down warm sponges, the bowel pinked up. The small bowel was then run from the ligament of Treitz down to the cecum and all adhesions were lysed and good doppler flows to the previously discolored bowel proximal to the obstructed site. The area that was narrowed by the adhesive band was able to be dilated with extensive adhesiolysis. The original NG tube was replaced with a bigger tube and placed in the antrum of the stomach by palpation. Next, the abdominal cavity was then irritated with at least 5 L of saline. No evidence of any active bleeding was noted. There were also adhesions on the omentum towards the abdominal wall that were also lysed. The large intestine was noted to be collapsed and normal. Prior to the closure of the abdominal cavity, about 3 pieces of Interceed were placed in the pelvis in the right lower quadrant and in between the small bowel to hopefully prevent recurrent adhesions. The fascia was then closed with a running suture using single-arm #1 PDS starting at both ends and tying the 2 sutures together on the fascia just above the umbilicus. The subcutaneous layer above the fascia was then irrigated with saline. The skin incision was then closed with declan. . A transparent dressing was then placed over the incision site. Needle, instrument, and sponge counts were all correct. Estimated blood loss about 100 mL.The patient tolerated procedure well and brought to PACU extubated in satisfactory condition. DICTATING PHYSICIAN: GENEVIEVE YEUNG M.D. [id number] PHY#: [id number] ID: [id number] JOB#: [id number] ACCT: [id number] cc:GENEVIEVE YEUNG M.D. > MTDD
[2018-04-12] MEDS: KETOROLAC TROMETHAMINE INJ/PF 30 MG/1 ML SDV IV SCH ×3 (05:30→21:06)
[2018-04-12] MEDS: NORMAL SALINE 1000 ML 1,000 ML IV PRN (05:43)
--- NOTE | 2018-04-12 08:05 | EKG REPORT ---
SEVERITY:- NORMAL ECG - SINUS RHYTHM : Confirmed by: Elise Reveles MD 12-Apr-2018 08:04:51
--- NOTE | 2018-04-12 08:52 | PDOC PROGRESS REPORT ---
Subjective Progress Note for:: 04/12/18 Reason For Visit: SBO post op lysis of adhesions. Physical Exam Vital Signs: Temp Pulse Resp BP Pulse Ox 97.2 F 75 16 119/48 L 99 04/12/18 04:00 04/12/18 07:00 04/12/18 04:00 04/12/18 04:00 04/12/18 04:00 Intake & Output 04/11/18 04/12/18 04/13/18 06:59 06:59 06:59 Intake Total 1000 9555 Output Total 1480 Balance 1000 8075 Weight 55.2 kg 55.4 kg Respiratory exam: PRESENT: clear to auscultation jono, unlabored GI/Abdominal exam: PRESENT: soft - abd soft, +incisional tenderness wound clean dry no bs Results Laboratory Results: 04/11/18 06:28 04/11/18 06:28 Impressions: Abdomen/Pelvis CT 04/10/18 00:00 IMPRESSION: Distal small bowel obstruction. Acute Abdomen Series 04/10/18 00:02 IMPRESSION: Negative chest. Air-filled loops of small bowel with a few air-fluid levels likely reflect ileus. Incomplete obstruction felt less likely copyright 2011 [employer]- All Rights Reserved KUB X-Ray 04/10/18 04:36 IMPRESSION: The tip of the nasogastric tube projects over the left upper quadrant in the region of the body of the stomach and the proximal sidehole projects over the region of the GE junction. Small Bowel X-Ray 04/11/18 00:00 IMPRESSION: Distal small bowel obstruction. Findings called to Dr. Joshua Assessment & Plan - Diagnosis (1) Small bowel obstruction Is this a current diagnosis for this admission?: Yes - Inpatient Certification Medical Necessity: Need For IV Fluids - Plan Summary Plan Summary: pod 1 cont ng tube up ambulating
[2018-04-12 09:33] LABS: ABSOLUTE LYMPHOCYTES (AUTO) 1.1 10^3/uL (0.5-4.7); ABSOLUTE NEUT (AUTO) 7.1 10^3/uL (1.7-8.2); BASOPHILS % (AUTO) 0.5 % (0-2); EOSINOPHILS % (AUTO) 0.2 % (0-6); HEMATOCRIT 40.2 % (36.0-47.0); HEMOGLOBIN 13.6 g/dL (12.0-15.5); LYMPHOCYTES % (AUTO) 11.5 % (13-45); MEAN CORPUSCULAR HEMOGLOBIN 33.4 pg (27.0-33.4); MEAN CORPUSCULAR HGB CONC 33.8 g/dL (32.0-36.0); MEAN CORPUSCULAR VOLUME 99 fl (80-97); RED BLOOD COUNT 4.07 10^6/uL (3.72-5.28); RED CELL DISTRIBUTION WIDTH 13.5 % (11.5-14.0); SEGMENTED NEUTROPHILS % (AUTO) 76.8 % (42-78); TOTAL CELLS COUNTED % (AUTO) 100 %; WHITE BLOOD COUNT 9.3 10^3/uL (4.0-10.5)
[2018-04-12 09:41] LABS: BLOOD UREA NITROGEN 18 mg/dL (7-20); CALCIUM 7.5 mg/dL (8.4-10.2); GLUCOSE 110 mg/dL (75-110)
[2018-04-12 09:46] LABS: CARBON DIOXIDE 28 mmol/L (22-30); CHLORIDE 111 mmol/L (98-107); SODIUM 141.6 mmol/L (137-145)
[2018-04-12 09:48] LABS: ANION GAP 3 (5-19)
[2018-04-12 10:03] LABS: PLATELET COUNT 183 10^3/uL (150-450)
[2018-04-12] MEDS: POTASSI CL 20 MEQ/D5-1/2NS 1L 1000 ML IV PRN ×2 (14:13→22:22)
[2018-04-12] MEDS: ESTROGEN SL SCH (21:03)
[2018-04-12] MEDS: PROGESTERONE SL SCH (21:03)
[2018-04-12] MEDS ORDERED: [UNRECOGNIZED DRUG - OTHER] SL SCH (22:00)
[2018-04-13] MEDS: KETOROLAC TROMETHAMINE INJ/PF 30 MG/1 ML SDV IV SCH ×3 (05:05→21:02)
[2018-04-13] MEDS: POTASSI CL 20 MEQ/D5-1/2NS 1L 1000 ML IV PRN ×3 (06:24→23:16)
[2018-04-13] MEDS: ONDANSETRON HCL INJ/PF 4 MG/2 ML SDV IV PRN ×2 (10:23→18:30)
[2018-04-13 12:15] LABS: ABSOLUTE EOSINOPHILS # (AUTO) 0.1 10^3/uL (0.0-0.6); ABSOLUTE LYMPHOCYTES (AUTO) 0.7 10^3/uL (0.5-4.7); ABSOLUTE MONOCYTES (AUTO) 0.7 10^3/uL (0.1-1.4); BASOPHILS % (AUTO) 0.5 % (0-2); EOSINOPHILS % (AUTO) 0.9 % (0-6); HEMATOCRIT 34.5 % (36.0-47.0); LYMPHOCYTES % (AUTO) 9.6 % (13-45); MEAN CORPUSCULAR HEMOGLOBIN 34.4 pg (27.0-33.4); MEAN CORPUSCULAR HGB CONC 34.8 g/dL (32.0-36.0); MEAN CORPUSCULAR VOLUME 99 fl (80-97); MONOCYTES % (AUTO) 8.7 % (3-13); PLATELET COUNT 163 10^3/uL (150-450); RED BLOOD COUNT 3.49 10^6/uL (3.72-5.28); RED CELL DISTRIBUTION WIDTH 13.5 % (11.5-14.0); SEGMENTED NEUTROPHILS % (AUTO) 80.3 % (42-78); TOTAL CELLS COUNTED % (AUTO) 100 %; WHITE BLOOD COUNT 7.5 10^3/uL (4.0-10.5)
[2018-04-13 12:39] LABS: BLOOD UREA NITROGEN 14 mg/dL (7-20); CALCIUM 7.6 mg/dL (8.4-10.2); GLUCOSE 111 mg/dL (75-110); POTASSIUM 3.9 mmol/L (3.6-5.0)
[2018-04-13 12:44] LABS: CARBON DIOXIDE 27 mmol/L (22-30); CHLORIDE 107 mmol/L (98-107); SODIUM 137.5 mmol/L (137-145)
[2018-04-13 12:50] LABS: ANION GAP 4 (5-19)
[2018-04-13] MEDS: PHENOL/SODIUM PHENOLATE 100 SPRAY/177 ML BOTTLE PO PRN ×2 (16:07→21:03)
--- NOTE | 2018-04-13 20:20 | PDOC PROGRESS REPORT ---
Subjective Progress Note for:: 04/13/18 Subjective:: feels better today. Minimal incisional pains Reason For Visit: SBO Physical Exam Vital Signs: Temp Pulse Resp BP Pulse Ox 97.8 F 86 18 166/65 H 98 04/13/18 15:22 04/13/18 15:22 04/13/18 15:22 04/13/18 15:22 04/13/18 15:22 Intake & Output 04/12/18 04/13/18 04/14/18 06:59 06:59 06:59 Intake Total 9555 3000 1000 Output Total 1480 1580 125 Balance 8075 1420 875 Weight 55.4 kg 63.4 kg Exam: abd is flat and non tender. NGT about 700 ccs but had at least a cup of ice chips Results Laboratory Results: 04/13/18 11:34 04/13/18 11:34 04/13/18 04/13/18 11:34 11:34 WBC 7.5 RBC 3.49 L Hgb 12.0 Hct 34.5 L MCV 99 H MCH 34.4 H MCHC 34.8 RDW 13.5 Plt Count 163 Seg Neutrophils % 80.3 H Lymphocytes % 9.6 L Monocytes % 8.7 Eosinophils % 0.9 Basophils % 0.5 Absolute Neutrophils 6.0 Absolute Lymphocytes 0.7 Absolute Monocytes 0.7 Absolute Eosinophils 0.1 Absolute Basophils 0.0 Sodium 137.5 Potassium 3.9 Chloride 107 Carbon Dioxide 27 Anion Gap 4 L BUN 14 Creatinine 0.61 Est GFR ( Amer) > 60 Est GFR (Non-Af Amer) > 60 Glucose 111 H Calcium 7.6 L Impressions: Abdomen/Pelvis CT 04/10/18 00:00 IMPRESSION: Distal small bowel obstruction. Acute Abdomen Series 04/10/18 00:02 IMPRESSION: Negative chest. Air-filled loops of small bowel with a few air-fluid levels likely reflect ileus. Incomplete obstruction felt less likely copyright 2011 [employer]- All Rights Reserved KUB X-Ray 04/10/18 04:36 IMPRESSION: The tip of the nasogastric tube projects over the left upper quadrant in the region of the body of the stomach and the proximal sidehole projects over the region of the GE junction. Small Bowel X-Ray 04/11/18 00:00 IMPRESSION: Distal small bowel obstruction. Findings called to Dr. Joshua Assessment & Plan - Diagnosis (1) Small bowel obstruction Is this a current diagnosis for this admission?: Yes - Time Time Spent with patient: 15-24 minutes - Inpatient Certification Medical Necessity: Need Close Monitoring Due to Risk of Patient Decompensation, Need For IV Fluids - Plan Summary Plan Summary: Keep NGT Monitor labs OOB
[2018-04-13] MEDS: ESTROGEN SL SCH (21:03)
[2018-04-13] MEDS: PROGESTERONE SL SCH (21:03)
[2018-04-14] MEDS: ONDANSETRON HCL INJ/PF 4 MG/2 ML SDV IV PRN ×2 (00:40→10:56)
[2018-04-14] MEDS: KETOROLAC TROMETHAMINE INJ/PF 30 MG/1 ML SDV IV SCH ×2 (05:10→13:53)
[2018-04-14] MEDS: POTASSI CL 20 MEQ/D5-1/2NS 1L 1000 ML IV PRN ×2 (06:56→15:59)
--- NOTE | 2018-04-14 11:08 | PDOC PROGRESS REPORT ---
Subjective Progress Note for:: 04/14/18 Reason For Visit: SBO feels ok passed small bm Physical Exam Vital Signs: Temp Pulse Resp BP Pulse Ox 98.0 F 70 18 167/76 H 98 04/14/18 07:20 04/14/18 07:20 04/14/18 07:20 04/14/18 07:20 04/14/18 07:20 Intake & Output 04/13/18 04/14/18 04/15/18 06:59 06:59 06:59 Intake Total 3000 2852 Output Total 1580 1300 Balance 1420 1552 Weight 63.4 kg 61.5 kg GI/Abdominal exam: PRESENT: normal bowel sounds, soft Results Laboratory Results: 04/13/18 11:34 04/13/18 11:34 04/13/18 04/13/18 11:34 11:34 WBC 7.5 RBC 3.49 L Hgb 12.0 Hct 34.5 L MCV 99 H MCH 34.4 H MCHC 34.8 RDW 13.5 Plt Count 163 Seg Neutrophils % 80.3 H Lymphocytes % 9.6 L Monocytes % 8.7 Eosinophils % 0.9 Basophils % 0.5 Absolute Neutrophils 6.0 Absolute Lymphocytes 0.7 Absolute Monocytes 0.7 Absolute Eosinophils 0.1 Absolute Basophils 0.0 Sodium 137.5 Potassium 3.9 Chloride 107 Carbon Dioxide 27 Anion Gap 4 L BUN 14 Creatinine 0.61 Est GFR ( Amer) > 60 Est GFR (Non-Af Amer) > 60 Glucose 111 H Calcium 7.6 L Impressions: Abdomen/Pelvis CT 04/10/18 00:00 IMPRESSION: Distal small bowel obstruction. Acute Abdomen Series 04/10/18 00:02 IMPRESSION: Negative chest. Air-filled loops of small bowel with a few air-fluid levels likely reflect ileus. Incomplete obstruction felt less likely copyright 2011 [employer]- All Rights Reserved KUB X-Ray 04/10/18 04:36 IMPRESSION: The tip of the nasogastric tube projects over the left upper quadrant in the region of the body of the stomach and the proximal sidehole projects over the region of the GE junction. Small Bowel X-Ray 04/11/18 00:00 IMPRESSION: Distal small bowel obstruction. Findings called to Dr. Joshua Assessment & Plan - Diagnosis (1) Small bowel obstruction Is this a current diagnosis for this admission?: Yes - Inpatient Certification Medical Necessity: Need For IV Fluids - Plan Summary Plan Summary: doing better had small bm will dc grimes clamp trial ng
[2018-04-14] MEDS: PHENOL/SODIUM PHENOLATE 100 SPRAY/177 ML BOTTLE PO PRN (11:31)
[2018-04-14] MEDS ORDERED: HYDRALAZINE HCL INJ/PF 20 MG/1 ML SDV ONE (16:22)
[2018-04-14] MEDS ORDERED: HYDRALAZINE HCL INJ/PF 20 MG/1 ML SDV IV ONE (16:45)
[2018-04-14] MEDS ORDERED: HYDRALAZINE HCL INJ/PF 20 MG/1 ML SDV IV PRN (16:47)
--- NOTE | 2018-04-14 16:47 | PDOC CONSULTATION ---
Consultation Consult Date: 04/14/18 Attending physician:: GENEVIEVE YEUNG Consult reason:: HTN History of Present Illness Admission Date/PCP: 04/10/18 04:47 YOBANI NÚÑEZ PA-C Patient complains of: NO COMPLAINTS. HIGH BLOOD PRESSURE History of Present Illness: SHIRLEY HAUSER is a 72 year old female Past Medical History Cardiac Medical History: Denies: Coronary Artery Disease, Myocardial Infarction, Hypertension Pulmonary Medical History: Denies: Asthma, Bronchitis, Chronic Obstructive Pulmonary Disease (COPD), Pneumonia Neurological Medical History: Denies: Seizures Endocrine Medical History: Reports: Hypothyroidism GI Medical History: Denies: Hepatitis, Hiatal Hernia Musculoskeltal Medical History: Reports: Arthritis Hematology: Denies: Anemia, Sickle Cell Disease Past Surgical History Past Surgical History: Reports: Other - SMALL BOWEL OBSTRUCTION Denies: Amputation, Hysterectomy, Mastectomy, Pacemaker Social History Information Source: Patient Lives with: Family Smoking Status: Never Smoker Frequency of Alcohol Use: Rare Hx Recreational Drug Use: No Drugs: None Hx Prescription Drug Abuse: No - Advance Directive Resuscitation Status: Full Code Family History Family History: CAD, Other - [place] Family History: AORTIC ANEURYSM Parental Family History Reviewed: Yes Children Family History Reviewed: Yes Sibling(s) Family History Reviewed.: Yes Medication/Allergy Home Medications: Azelastine HCl 1 spray NASL DAILYP PRN 04/10/18 Estrogen-Progesterone 0.4/100 Mg 1 tab SL QHS 04/10/18 Levothyroxine Sodium [Synthroid 0.025 mg Tablet] 0.025 mg PO Q6AM 04/10/18 Allergies/Adverse Reactions: No Known Allergies Allergy (Verified 05/19/16 11:21) Review of Systems All systems: reviewed and no additional remarkable complaints except as stated Physical Exam Vital Signs: Temp Pulse Resp BP Pulse Ox 97.9 F 77 16 185/75 H 99 04/14/18 15:33 04/14/18 15:33 04/14/18 15:33 04/14/18 15:33 04/14/18 15:33 Intake & Output 04/13/18 04/14/18 04/15/18 06:59 06:59 06:59 Intake Total 3000 2852 1100 Output Total 1580 1300 200 Balance 1420 1552 900 Weight 63.4 kg 61.5 kg General appearance: PRESENT: no acute distress Head exam: PRESENT: atraumatic Eye exam: PRESENT: conjunctiva pink, PERRLA Mouth exam: PRESENT: moist Neck exam: PRESENT: full ROM Respiratory exam: PRESENT: clear to auscultation jono, symmetrical, unlabored Cardiovascular exam: PRESENT: +S1, +S2 Pulses: PRESENT: normal radial pulses, normal dorsalis pedis pul Vascular exam: PRESENT: normal capillary refill GI/Abdominal exam: PRESENT: normal bowel sounds, soft. ABSENT: distended Rectal exam: PRESENT: deferred Extremities exam: PRESENT: full ROM Musculoskeletal exam: PRESENT: ambulatory, full ROM Neurological exam: PRESENT: alert, awake, oriented to person, oriented to place, oriented to time, oriented to situation Psychiatric exam: PRESENT: appropriate affect Skin exam: PRESENT: dry, intact, normal color Results Laboratory Results: 04/13/18 11:34 04/13/18 11:34 Impressions: Abdomen/Pelvis CT 04/10/18 00:00 IMPRESSION: Distal small bowel obstruction. Acute Abdomen Series 04/10/18 00:02 IMPRESSION: Negative chest. Air-filled loops of small bowel with a few air-fluid levels likely reflect ileus. Incomplete obstruction felt less likely copyright 2011 [employer]- All Rights Reserved KUB X-Ray 04/10/18 04:36 IMPRESSION: The tip of the nasogastric tube projects over the left upper quadrant in the region of the body of the stomach and the proximal sidehole projects over the region of the GE junction. Small Bowel X-Ray 04/11/18 00:00 IMPRESSION: Distal small bowel obstruction. Findings called to Dr. Yeung Status: Imported from PACS Assessment & Plan - Diagnosis (1) High blood pressure Qualifiers: Hypertension type: unspecified Qualified Code(s): I10 - Essential (primary) hypertension Is this a current diagnosis for this admission?: Yes Plan: NURSING STAFF REPORTS SBP CLIMBING FROM 160-->180 OVER 3 DAYS PATIENT DENIES COMPLAINTS - NO CHEST PAIN, SOB, REID, BLURRY VISION UNCLEAR ETIOLOGY AT THIS TIME STAT EKG CARDIAC ENZYMES PRN HYDRALAZINE AND LABETOLOL IF BP REMAINS ELEVATED AND EKG/LABS NORMAL - MAY NEED ECHOCARDIOGRAM (2) Hypothyroid Is this a current diagnosis for this admission?: Yes Plan: PATIENT CURRENTLY TAKES SYNTHROID HAS NOT RECEIVED A DOSE IN 5 DAYS DUE TO NPO STATUS RESUME SYNTHROID CHECK TSH IN AM (3) Small bowel obstruction Is this a current diagnosis for this admission?: Yes Plan: MANAGEMENT PER SURGERY - Time Time Spent: 30 to 50 Minutes Medications reviewed and adjusted accordingly: Yes - Inpatient Certification Based on my medical assessment, after consideration of the patient's comorbidities, presenting symptoms, or acuity I expect that the services needed warrant INPATIENT care.: Yes I certify that my determination is in accordance with my understanding of [facility] 's requirements for reasonable and necessary INPATIENT services [42 CFR 412.3e].: Yes Medical Necessity: Risk of Complication if Not Cared For in Hospital
[2018-04-14] MEDS ORDERED: LABETALOL HCL INJ 20 MG/4 ML DISP.SYRIN IV PRN (16:48)
--- NOTE | 2018-04-14 21:39 | EKG REPORT ---
SEVERITY:- NORMAL ECG - SINUS RHYTHM : Confirmed by: Elise Reveles MD 14-Apr-2018 21:39:02
[2018-04-14] MEDS: PROGESTERONE SL SCH (21:54)
[2018-04-14] MEDS: ESTROGEN SL SCH (21:54)
[2018-04-15] MEDS: POTASSI CL 20 MEQ/D5-1/2NS 1L 1000 ML IV PRN (00:30)
[2018-04-15] MEDS ORDERED: KETOROLAC TROMETHAMINE 10 MG TABLET PO PRN (11:10)
--- NOTE | 2018-04-15 16:09 | PDOC PROGRESS REPORT ---
Subjective Progress Note for:: 04/15/18 Subjective:: Consulted for blood pressure management by surgical list. 72 Y.O. F admitted to [facility] for SBO. Patient denies chest pain, SOB, REID, blurry vision, N/V. The patient endorses having a headache this morning but states it went away after she ate breakfast. Moderate control of BP with PRN IV medications (SBP averaging 150s). EKG continues to show NSR. No evidence of LVH. If patient remains hypertensive, may warrant echocardiogram. Reason For Visit: SBO Physical Exam Vital Signs: Temp Pulse Resp BP Pulse Ox 97.7 F 97 18 154/62 H 100 04/15/18 14:47 04/15/18 14:47 04/15/18 14:47 04/15/18 14:47 04/15/18 14:47 Intake & Output 04/14/18 04/15/18 04/16/18 06:59 06:59 06:59 Intake Total 2852 2300 2000 Output Total 1300 200 600 Balance 1552 2100 1400 Weight 61.5 kg 60.1 kg General appearance: PRESENT: no acute distress, well-developed, well-nourished Head exam: PRESENT: atraumatic, normocephalic Eye exam: PRESENT: conjunctiva pink, EOMI, PERRLA. ABSENT: scleral icterus Ear exam: PRESENT: normal external ear exam Mouth exam: PRESENT: moist, tongue midline Neck exam: ABSENT: carotid bruit, JVD, lymphadenopathy, thyromegaly Respiratory exam: PRESENT: clear to auscultation jono. ABSENT: rales, rhonchi, wheezes Cardiovascular exam: PRESENT: RRR. ABSENT: diastolic murmur, rubs, systolic murmur Pulses: PRESENT: normal dorsalis pedis pul Vascular exam: PRESENT: normal capillary refill GI/Abdominal exam: PRESENT: normal bowel sounds, soft, tenderness. ABSENT: distended, mass, organolmegaly, rebound Rectal exam: PRESENT: deferred Extremities exam: PRESENT: full ROM. ABSENT: calf tenderness, clubbing, pedal edema Neurological exam: PRESENT: alert, awake, oriented to person, oriented to place, oriented to time, oriented to situation. ABSENT: motor sensory deficit Psychiatric exam: PRESENT: appropriate affect, normal mood. ABSENT: homicidal ideation, suicidal ideation Skin exam: PRESENT: dry, intact, warm. ABSENT: cyanosis, rash Results Laboratory Results: 04/13/18 11:34 04/13/18 11:34 04/15/18 11:39 TSH 6.13 H Impressions: Abdomen/Pelvis CT 04/10/18 00:00 IMPRESSION: Distal small bowel obstruction. Acute Abdomen Series 04/10/18 00:02 IMPRESSION: Negative chest. Air-filled loops of small bowel with a few air-fluid levels likely reflect ileus. Incomplete obstruction felt less likely copyright [employer]- All Rights Reserved KUB X-Ray 04/10/18 04:36 IMPRESSION: The tip of the nasogastric tube projects over the left upper quadrant in the region of the body of the stomach and the proximal sidehole projects over the region of the GE junction. Small Bowel X-Ray 04/11/18 00:00 IMPRESSION: Distal small bowel obstruction. Findings called to Dr. Joshua Status: Imported from PACS Assessment & Plan - Diagnosis (1) High blood pressure Qualifiers: Hypertension type: unspecified Qualified Code(s): I10 - Essential (primary) hypertension Is this a current diagnosis for this admission?: Yes Plan: NURSING STAFF REPORTS SBP CLIMBING FROM 160-->180 OVER 3 DAYS PATIENT DENIES COMPLAINTS - NO CHEST PAIN, SOB, REID, BLURRY VISION UNCLEAR ETIOLOGY AT THIS TIME EKG continues to show NSR CARDIAC ENZYMES negative PRN HYDRALAZINE AND LABETOLOL IF BP REMAINS ELEVATED - MAY NEED ECHOCARDIOGRAM (2) Hypothyroid Is this a current diagnosis for this admission?: Yes Plan: PATIENT CURRENTLY TAKES SYNTHROID HAS NOT RECEIVED A DOSE IN 5 DAYS DUE TO NPO STATUS RESUME SYNTHROID CHECK TSH IN AM (3) Small bowel obstruction Is this a current diagnosis for this admission?: Yes Plan: MANAGEMENT PER SURGERY - Time Time Spent with patient: 15-24 minutes Medications reviewed and adjusted accordingly: Yes Anticipated discharge: Home - Inpatient Certification Based on my medical assessment, after consideration of the patient's comorbidities, presenting symptoms, or acuity I expect that the services needed warrant INPATIENT care.: Yes I certify that my determination is in accordance with my understanding of Medicare's requirements for reasonable and necessary INPATIENT services [42 CFR 412.3e].: Yes Medical Necessity: Risk of Complication if Not Cared For in Hospital - Plan Summary Plan Summary: CONTINUE BP MONITORING. NO LONGER NEED TO FOLLOW CARDIAC ENZYMES.
--- NOTE | 2018-04-15 19:47 | PDOC PROGRESS REPORT ---
Subjective Progress Note for:: 04/15/18 Subjective:: Has BM and flatus No Pains Tolerated liquids well Reason For Visit: SBO Physical Exam Vital Signs: Temp Pulse Resp BP Pulse Ox 97.7 F 84 18 154/62 H 100 04/15/18 14:47 04/15/18 19:00 04/15/18 14:47 04/15/18 14:47 04/15/18 14:47 Intake & Output 04/14/18 04/15/18 04/16/18 06:59 06:59 06:59 Intake Total 2852 2300 2725 Output Total 0805 710 6602 Balance 1552 2100 1725 Weight 61.5 kg 60.1 kg Exam: abdomen is soft and non tender Results Laboratory Results: 04/13/18 11:34 04/13/18 11:34 04/15/18 11:39 TSH 6.13 H Impressions: Abdomen/Pelvis CT 04/10/18 00:00 IMPRESSION: Distal small bowel obstruction. Acute Abdomen Series 04/10/18 00:02 IMPRESSION: Negative chest. Air-filled loops of small bowel with a few air-fluid levels likely reflect ileus. Incomplete obstruction felt less likely copyright 2011 [employer]- All Rights Reserved KUB X-Ray 04/10/18 04:36 IMPRESSION: The tip of the nasogastric tube projects over the left upper quadrant in the region of the body of the stomach and the proximal sidehole projects over the region of the GE junction. Small Bowel X-Ray 04/11/18 00:00 IMPRESSION: Distal small bowel obstruction. Findings called to Dr. Joshua Assessment & Plan - Diagnosis (1) Small bowel obstruction Is this a current diagnosis for this admission?: Yes - Time Time Spent with patient: 15-24 minutes - Plan Summary Plan Summary: Increase to soft diet Discharge tomorrow if tolerates diet well Follow up surgical clinic in 2 weeks for staple removal.
[2018-04-15] MEDS: PROGESTERONE SL SCH (21:25)
[2018-04-15] MEDS: ESTROGEN SL SCH (21:25)
--- NOTE | 2018-04-16 07:27 | EKG REPORT ---
SEVERITY:- NORMAL ECG - SINUS RHYTHM : Confirmed by: Elise Reveles MD 16-Apr-2018 07:26:53
[2018-04-16] MEDS ORDERED: AMLODIPINE BESYLATE 2.5 MG TABLET PO SCH (11:30)
[2018-04-16 15:28] VITALS: BP 135/60
--- NOTE | 2018-04-16 17:48 | PDOC DISCHARGE SUMMARY ---
General - Admit/Disc Date/PCP Admission Date/Primary Care Provider: 04/10/18 04:47 YOBANI NÚÑEZ PA-C Discharge Date: 04/16/18 - Discharge Diagnosis (1) Small bowel obstruction Is this a current diagnosis for this admission?: Yes - Additional Information Resuscitation Status: Full Code Discharge Diet: As Tolerated Discharge Activity: Balance Activity w/Rest, No Driving, No Lifting Over 10 Pounds, No Lifting/Push/Pulling Prescriptions: Amlodipine Besylate [Norvasc 2.5 mg Tablet] 2.5 mg PO DAILY #30 tablet Home Medications: Azelastine HCl 1 spray NASL DAILYP PRN 04/10/18 Estrogen-Progesterone 0.4/100 Mg 1 tab SL QHS 04/10/18 Levothyroxine Sodium [Synthroid 0.025 mg Tablet] 0.025 mg PO Q6AM 04/10/18 Amlodipine Besylate [Norvasc 2.5 mg Tablet] 2.5 mg PO DAILY #30 tablet 04/16/18 History of Present Illness History of Present Illness: SHIRLEY HAUSER is a 72 year old female with a 12-hour history of abdominal pain, nausea, and vomiting. The patient has experienced a small bowel obstruction in the past, requiring surgery. Patient reports that her symptoms "feel exactly the same". After eating dinner the patient began having lower abdominal pain, followed by distention, followed by vomiting. The patient presented to the emergency department after vomiting approximately 5 times. The patient's last flatus and bowel movement were last night at approximately 2130. The patient denies any chest pain, shortness of breath, fevers, chills, orthostasis, dizziness, fatigue, malaise, headache, sore throat. The patient does report abdominal cramping, nausea, and vomiting. Nothing makes her pain better or worse. Hospital Course Hospital Course: Patient was admitted to the hospital. She underwent NG decompression. NG decompression was unsuccessful. The patient underwent small bowel follow- through confirming persistence of her small bowel obstruction. The patient was taken to the operating room by Dr. Joshua. Patient was then taken to the floor in stable condition. The patient progressed very well. She began having bowel function. She began eating a diet. By 04/16/18 the patient was ambulating, tolerating a diet, passing flatus, and it was felt that she had reached maximal hospital benefit and was fit for discharge. Physical Exam Vital Signs: Temp Pulse Resp BP Pulse Ox 99.1 F 81 16 135/60 H 98 04/16/18 14:48 04/16/18 14:48 04/16/18 14:48 04/16/18 14:48 04/16/18 14:48 Intake & Output 04/15/18 04/16/18 04/17/18 06:59 06:59 06:59 Intake Total 2300 3025 250 Output Total 200 2200 900 Balance 2100 825 -650 Weight 60.1 kg 60.7 kg Results Laboratory Results: 04/13/18 11:34 04/13/18 11:34 Impressions: Abdomen/Pelvis CT 04/10/18 00:00 IMPRESSION: Distal small bowel obstruction. Acute Abdomen Series 04/10/18 00:02 IMPRESSION: Negative chest. Air-filled loops of small bowel with a few air-fluid levels likely reflect ileus. Incomplete obstruction felt less likely copyright [employer]- All Rights Reserved KUB X-Ray 04/10/18 04:36 IMPRESSION: The tip of the nasogastric tube projects over the left upper quadrant in the region of the body of the stomach and the proximal sidehole projects over the region of the GE junction. Small Bowel X-Ray 04/11/18 00:00 IMPRESSION: Distal small bowel obstruction. Findings called to Dr. Joshua Qualifiers - * PATIENT BEING DISCHARGED WITH ANY OF THE FOLLOWING DIAGNOSIS: No Plan Discharge Plan: Discharge home. Diet as tolerated. Activity: No lifting more than 10 pounds x 6 weeks after surgery. Follow-up with me in 7-10 days at [facility] for staple removal. Motrin/Tylenol for pain. No tub baths or swimming pools times 2 weeks after surgery.
[2018-04-17] MEDS ORDERED: LEVOTHYROXINE SODIUM 0.025 MG TABLET PO ONE (12:00)
== END 2018-04-16 18:26 | disposition home or self-care (01) | DRG 337 ==
LOC: ER 23:39 → EH 04-10 04:47 → 2N 04-10 08:56 → 3S 04-11 22:31
PROVIDERS: ADMIT Surgery; ATTEND Surgery
PROC: 0D9670Z Drainage of Stomach with Drainage Device, Via Natural or Artificial Opening (ICD-10-PCS; 2018-04-10)
PROC: 0DNE0ZZ Release Large Intestine, Open Approach (ICD-10-PCS; principal; 2018-04-11 16:30)
DX: K56.50 Intestinal adhesions [bands], unspecified as to partial versus complete obstruction (principal); E03.9 Hypothyroidism, unspecified; M19.90 Unspecified osteoarthritis, unspecified site; Z79.899 Other long term (current) drug therapy
CPT/HCPCS: 36415; 74018; 74022; 74177; 74250; 790; 80048; 80053; 81001; 82962; 83605; 83690; 84443; 85025; 87493; 93005; 93010; 94799; 96361; 96374; 96375; 96376; 99285; C1765; J0330; J0360; J0690; J1170; J1885; J2250; J2270; J2405; J2550; J2704; J3010; J3480; J3490; J7030